=== PATIENT | female | born 1990 | race African-American/Black ===

== ENCOUNTER → 2017-11-04 | Outpatient (CLI) | DX: Z32.01 Encounter for pregnancy test, result positive (principal); R82.99 Other abnormal findings in urine ==

== ENCOUNTER 2017-11-27 05:10 | Emergency (ER) | payer OTHER ==
[~2017-11-27] VITALS: Ht 162.6 cm; Wt 48.5 kg
[2017-11-27] MEDS ORDERED: PREN29CH PO (05:50)
[2017-11-27] MEDS ORDERED: PROM1SUP7 RECTAL (05:50)
--- NOTE | 2017-11-27 06:02 | PD ---
HPI Chief Complaint Nausea, cramping lower abdominal Date Seen: Nov 27, 2017 Time Seen: 05:55 Travel History International Travel<30 Days: No Contact w/Intl Traveler<30Days: No Known Affected Area: No History of Present Illness HPI 26-year-old black female at [address] Abdullahi, she works here in the [email or web address], and she has nausea dizziness with lower abdominal cramping today. States she usually takes Phenergan suppositories but for some reason did not take it today and came to work and she has been sick at her stomach but no vomiting. She is requesting a shot of Phenergan for assistance may be useful prescription for pills to go home with for Phenergan, heart tones are within normal limits Weeks Gestation: 17 Para: 0 : 1 History Obstetric History Obstetric History History nausea vomiting with this and uses Phenergan suppositories at home and work Social History Alcohol Use: No Tobacco Use: No Substance Abuse: No Allergies-Medications (Allergen,Severity, Reaction): Coded Allergies: No Known Allergies (Verified Allergy, Unknown, 11/27/17) Home Meds Reported Medications Without A Vit W/ Fe F (Prenata 29-1 mg) 29 Mg Iron-1 Mg Chw, 1 TAB PO DAILY 11/27/17 Promethazine Supp (Phenergan Supp) 25 Mg Supp, 25 MG RECTAL Q6H Y for NAUSEA OR VOMITING, SUPP 0 Refills 11/27/17 Review of Systems General / Constitutional: No: Fever, Weight Gain, Chills, Other Eyes: No: Diploplia, Blurred Vision, Visual changes, Pain, Photophobia HENT: No: Headaches, Vertigo, Lightheadedness Cardiovascular: No: Irregular Rhythm, Chest Pain or Discomfort, Palpitations, Tachycardia, Syncope, Varicosities, Edema, Cyanosis Respiratory: No: Cough, Short of Breath, Other Gastrointestinal: Nausea, Abdominal Pain, No: Vomiting, Diarrhea Genitourinary: No: Decreased Urinary Output, Oliguria Musculoskeletal: No: Limited ROM, Weakness, Cramping, Edema, Pain Skin: No Rash, No Itching, No Dryness, No Lumps, No Change in Pigmentation, No Change in Nails, No Alopecia, No Lesions Neurologic: No: Weakness, Dizziness, Syncope, Focal Abnormalities, Coordination Problem, Headache, Slurred Speech, Seizures Psychiatric: No: Depression, Suicidal Ideations, Homicidal Ideation Endocrine: No: Heat Intolerance, Cold Intolerance, Polydipsia, Polyuria, Other Physical Exam Narrative GENERAL: Well-nourished, well-developed thin patient. SKIN: Warm and dry. HEAD: Normocephalic and atraumatic. EYES: No scleral icterus. No injection or drainage. ENT: No nasal drainage noted. Mucous membranes pink. Airway patent. NECK: Supple, trachea midline. No JVD. CARDIOVASCULAR: Regular rate and rhythm without murmurs, gallops, or rubs. RESPIRATORY: Breath sounds equal bilaterally. No accessory muscle use. BREASTS: Bilateral exam showed no masses , no retractions, no nipple discharge. ABDOMEN/GI: Abdomen soft, non-tender, bowel sounds present, no rebound, no guarding Gravid to [17-] weeks size Fundal Height: [17-] GENITOURINARY: External Genitalia: intact and normal in appearance BUS glands: [-] Cervix: [post-] Dilatation: [0-] Effacement: [-0] Station: [-3] Membranes: [intact ] Uterine Contractions: [none-] FHT's: 144 EXTREMITIES: No cyanosis or edema. BACK: Nontender without obvious deformity. No CVA tenderness. NEUROLOGICAL: Awake and alert. Motor and sensory grossly within normal limits. Five out of 5 muscle strength in all muscle groups. Normal speech. Data Data Labs Urine dip showed significant glucosuria but otherwise negative,, fingerstick blood sugar 101 MDM Interpretation(s) 26-year-old black female at 17 weeks with nausea and lower abdominal pain. Urine dip shows glucosuria but her fingerstick blood sugar was 101., the patient usually uses Phenergan suppositories for nausea but did not use them today. She is requesting a Phenergan shot which were happy to give her she can find a ride home and she is working on that and also will give Phenergan prescription for p.o. medication to use at home as well Plan Plan injection of Demerol 25 Phenergan 25 mg IM at home with a Phenergan prescription, she is bed rest, increase fluids p.o., Tylenol as needed, and heating pad on low across the abdomen and back or hot bath Diagnosis Diagnosis: Primary Impression: Nausea alone Additional Impressions: Lower abdominal pain, unspecified 17 weeks gestation of Disposition: 01 DISCHARGE HOME Condition: Stable Scripts Promethazine (Phenergan) 25 Mg Tablet 25 MG PO Q6H Y for NAUSEA OR VOMITING for 10 Days, #30 TAB 1 Refill Prov: Ovidio Estes II, MD 11/27/17 Ovidio Estes II, MD Nov 27, 2017 06:02
[2017-11-27] MEDS ORDERED: PROMETHAZINE INJ 25 MG/ML VIAL IM ONE (06:15)
[2017-11-27] MEDS ORDERED: MEPERIDINE HCL 25 MG/ML VIAL IM ONE (06:15)
[2017-11-27 06:17] LABS: BACTERIA, URINE RARE /hpf; BILIRUBIN, URINE NEG (NEG); BLOOD, URINE NEG (NEG); GLUCOSE,URINE 300 mg/dL (NEG); KETONE, URINE TRACE mg/dL (NEG); MUCUS URINE FEW /lpf (OCC); NITRITE,URINE NEG (NEG); SQUAMOUS EPITHELIAL CELL URINE 2 /hpf (0-5); URINE COLOR YELLOW (YELLW/STRAW); URINE LEUKOCYTE ESTERASE TRACE (NEG)
[2017-11-27] MEDS ORDERED: PROM25TA10 PO (06:20)
== END 2017-11-27 08:26 | disposition home or self-care (01) ==
LOC: HOBED 05:10
DX: O26.892 Other specified pregnancy related conditions, second trimester (principal); R11.0 Nausea; R10.30 Lower abdominal pain, unspecified; R42 Dizziness and giddiness; R82.99 Other abnormal findings in urine; Z3A.17 17 weeks gestation of pregnancy
CPT/HCPCS: 81001; 82948; 96372; 99283; J2175; J2550